=== PATIENT | male | born 1965 | race Caucasian/White ===

== ENCOUNTER 2023-01-17 08:57 | Observation (INO) | payer OTHER, SELFPAY ==
[2023-01-17 09:33] LABS: #Basophils 0.1 thou/uL (0.0-0.2); #Eosinphils 0.3 thou/uL (0.0-0.7); #Monocytes 1.1 thou/uL (0.11-0.59); #Neutrophils 6.2 thou/uL (1.40-6.50); %Basophils 0.7 % (0.0-1.0); %Eosinophils 2.8 % (0.0-10.0); %Lymphocytes 31.3 % (21.0-51.0); %Neutrophils 54.5 % (42.0-75.0); Hematocrit 41.1 % (42.0-52.0); Hemoglobin 13.5 g/dL (14.0-18.0); Mean Corpuscular HGB CONC 32.8 g/dL (32.0-36.0); Mean Corpuscular Hemoglobin 31.8 pg (27.0-31.0); Mean Corpuscular Volume 96.9 fl (78.0-98.0); Mean Platelet Volume 9.4 fL (7.4-10.4); Platelet Count 343 10x3/uL (130-400); RBC Distribution Width 13.2 % (11.5-14.5); Red Blood Cell (RBC) Count 4.24 mill/uL (4.70-6.10); White Blood Cell (WBC) Count 11.3 10x3/uL (4.8-10.8)
[2023-01-17 09:59] LABS: Troponin I 0.025 ng/mL (< 0.028)
[2023-01-17 10:03] LABS: ALT (SGPT) 19 U/L (8-55); AST (SGOT) 16 U/L (5-34); Albumin 4.1 g/dL (3.5-5.0); Alkaline Phosphatase 73 U/L (40-110); Anion Gap 16 mmol/L (10-20); BUN (Urea Nitrogen) 13 mg/dL (8.4-25.7); Bilirubin, Total 0.2 mg/dL (0.2-1.2); Calc. Creatinine Clearance 0 mL/min (70-130); Calcium 9.8 mg/dL (7.8-10.44); Carbon Dioxide 23 mmol/L (22-29); Chloride 104 mmol/L (98-107); Estimated GFR 93; Globulin 3.8 g/dL (2.4-3.5); Glucose 125 mg/dL (70-105); Lipase 15 U/L (8-78); Potassium 4.6 mmol/L (3.5-5.1); Protein, Total 7.9 g/dL (6.0-8.3); Sodium 138 mmol/L (136-145)
[2023-01-17] MEDS ORDERED: Nitroglycerin 2% Ointment 1 INCH/1 GM Packet ONE (10:56)
[2023-01-17] MEDS ORDERED: Aspirin Chewable 81 MG TAB ONE (11:00)
[2023-01-17] MEDS ORDERED: Dextrose 50% Abboject 50 ML SYRINGE SLOW IVP PRN (12:17)
[2023-01-17] MEDS ORDERED: Senokot S 8.6-50 MG TAB PO PRN (12:17)
[2023-01-17] MEDS ORDERED: Bisacodyl 10 MG SUPP PR PRN (12:17)
[2023-01-17] MEDS ORDERED: Acetaminophen 325 MG TAB PO PRN (12:17)
[2023-01-17] MEDS ORDERED: Bisacodyl 5 MG TAB PO PRN (12:17)
[2023-01-17] MEDS ORDERED: Dextrose 5% in Water 1,000 ML IV PRN (12:17)
[2023-01-17] MEDS ORDERED: HumaLOG 300 UNITS/3 ML VIAL SC PRN ×2 (12:17)
[2023-01-17] MEDS ORDERED: Glucagon 1 MG/ML KIT IM PRN (12:17)
[2023-01-17] MEDS ORDERED: Sodium Chloride 0.9% 1,000 ML IV SCH (12:30)
[2023-01-17 14:04] LABS: Hemoglobin A1c 8.5 % (4.0-6.0)
[2023-01-17 14:09] LABS: Troponin I Less than 0.010 ng/mL (< 0.028)
[2023-01-17 15:32] VITALS: BMI 47.7
[2023-01-17 17:12] LABS: Troponin I 0.021 ng/mL (< 0.028)
[2023-01-17] MEDS: Nitroglycerin 2% Ointment 1 INCH/1 GM Packet TOP SCH (21:13)
[2023-01-17] MEDS: Enoxaparin 120 MG/0.8 ML SYRINGE SC SCH (21:14)
[2023-01-18] MEDS: Nitroglycerin 2% Ointment 1 INCH/1 GM Packet TOP SCH ×2 (03:11→14:15)
[2023-01-18 07:01] LABS: #Basophils 0.1 thou/uL (0.0-0.2); #Eosinphils 0.4 thou/uL (0.0-0.7); #Monocytes 1.2 thou/uL (0.11-0.59); #Neutrophils 6.4 thou/uL (1.40-6.50); %Basophils 0.7 % (0.0-1.0); %Eosinophils 3.4 % (0.0-10.0); %Lymphocytes 24.6 % (21.0-51.0); %Monocytes 11.2 % (0.0-10.0); %Neutrophils 59.1 % (42.0-75.0); Hematocrit 40.4 % (42.0-52.0); Hemoglobin 13.3 g/dL (14.0-18.0); Mean Corpuscular HGB CONC 32.9 g/dL (32.0-36.0); Mean Corpuscular Hemoglobin 31.9 pg (27.0-31.0); Mean Corpuscular Volume 96.9 fl (78.0-98.0); Mean Platelet Volume 9.2 fL (7.4-10.4); Platelet Count 311 10x3/uL (130-400); RBC Distribution Width 13.2 % (11.5-14.5); Red Blood Cell (RBC) Count 4.17 mill/uL (4.70-6.10); White Blood Cell (WBC) Count 10.8 10x3/uL (4.8-10.8)
[2023-01-18 07:32] LABS: Anion Gap 18 mmol/L (10-20); BUN (Urea Nitrogen) 13 mg/dL (8.4-25.7); Calc. Creatinine Clearance 182 mL/min (70-130); Calcium 9.5 mg/dL (7.8-10.44); Carbon Dioxide 22 mmol/L (22-29); Cardiac Risk 7.6 (Less than 4.5); Chloride 103 mmol/L (98-107); Cholesterol 244 mg/dl (< 200 Desired); Estimated GFR 91; Glucose 169 mg/dL (70-105); HDL Cholesterol 32 mg/dL (>60 Neg Risk); Potassium 4.6 mmol/L (3.5-5.1); Sodium 138 mmol/L (136-145); Triglycerides 676 mg/dL (Less than 150)
[2023-01-18 07:33] LABS: ALT (SGPT) 20 U/L (8-55); AST (SGOT) 15 U/L (5-34); Albumin 3.9 g/dL (3.5-5.0); Alkaline Phosphatase 66 U/L (40-110); Bilirubin, Direct 0.1 mg/dL (0.1-0.3); Bilirubin, Total 0.2 mg/dL (0.2-1.2); Protein, Total 7.3 g/dL (6.0-8.3)
[2023-01-18] MEDS: Enoxaparin 120 MG/0.8 ML SYRINGE SC SCH (08:04)
[2023-01-18] MEDS ORDERED: Losartan 25 MG TAB PO SCH (09:00)
[2023-01-18] MEDS ORDERED: Aspirin Chewable 81 MG TAB PO SCH (09:00)
[2023-01-18 11:51] VITALS: BP 159/71; TEMP 98.2
[2023-01-18] MEDS ORDERED: Regadenoson 0.4 MG/5 ML SYRINGE ONE (14:37)
[2023-01-18] MEDS ORDERED: metFORMIN 500 MG TAB PO SCH (17:00)
[2023-01-18] MEDS ORDERED: Fenofibrate Nanocrystallized 145 MG TAB PO SCH (21:00)
[2023-01-18] MEDS ORDERED: Metoprolol Tartrate 25 MG TAB PO SCH (21:00)
[2023-01-18] MEDS ORDERED: Atorvastatin Calcium 40 MG TAB PO SCH (21:00)
[2023-01-19] MEDS ORDERED: Clopidogrel Bisulfate 75 MG TAB PO SCH (09:00)
== END 2023-01-18 15:58 | disposition home or self-care (01) ==
LOC: ERS 08:57 → SUATTDRO 08:57 → 2SW 14:48
PROVIDERS: ADMIT Family Medicine; ATTEND Family Medicine
DX: R07.9 Chest pain, unspecified (principal); I10 Essential (primary) hypertension; I25.110 Atherosclerotic heart disease of native coronary artery with unstable angina pectoris; I73.9 Peripheral vascular disease, unspecified; E11.43 Type 2 diabetes mellitus with diabetic autonomic (poly)neuropathy; D72.829 Elevated white blood cell count, unspecified; E78.5 Hyperlipidemia, unspecified; Z87.891 Personal history of nicotine dependence; Z88.2 Allergy status to sulfonamides; Z79.84 Long term (current) use of oral hypoglycemic drugs; Z79.02 Long term (current) use of antithrombotics/antiplatelets; Z79.899 Other long term (current) drug therapy
CPT/HCPCS: 36415; 36416; 71045; 78452; 80048; 80053; 80061; 80076; 83036; 83690; 83735; 83880; 84443; 84484; 85025; 86850; 86900; 86901; 93005; 93017; 93306; 94760; 96372; A9502; G0378; J1650; J2785

== ENCOUNTER 2023-10-20 07:38 | Outpatient (CLI) | payer BC | END 2023-10-20 07:39 | disposition home or self-care (01) | LOC: BICCT 07:38 | PROVIDERS: ATTEND Internal Medicine Hematology & Oncology | DX: Z12.2 Encounter for screening for malignant neoplasm of respiratory organs (principal); F17.210 Nicotine dependence, cigarettes, uncomplicated; D35.01 Benign neoplasm of right adrenal gland; J98.4 Other disorders of lung | CPT/HCPCS: 71271 ==

== ENCOUNTER 2024-01-13 07:40 | Emergency (ER) | payer BC ==
[2024-01-13] MEDS ORDERED: Ketorolac Tromethamine 30 MG (1 mL) VIAL ONE (08:28)
[2024-01-13 10:19] LABS: Hematocrit 40.6 % (42.0-52.0); Hemoglobin 13.6 g/dL (14.0-18.0); Mean Corpuscular HGB CONC 33.5 g/dL (32.0-36.0); Mean Corpuscular Hemoglobin 30.9 pg (27.0-31.0); Mean Corpuscular Volume 92.3 fL (78.0-98.0); Mean Platelet Volume 9.1 fL (7.4-10.4); Platelet Count 279 10x3/uL (130-400)
[2024-01-13 10:23] LABS: Bacteria/HPF None Seen HPF (None Seen); Bilirubin Negative (Negative); Blood, Urine Negative (Negative); CAUTI Indications for Culture Dysuria,urgency,freq; Clarity Clear (Clear); Glucose, Urine (Dipstick) Normal (Negative); Ketone, Urine Negative (Negative); Leukocyte Negative Leu/uL (Negative); Nitrite Negative (Negative); Protein, Urine (Dipstick) 20 mg/dL (Neg-Trace); RBC/HPF 0-3 HPF (0-3); Specific Gravity, Urine 1.021 (1.002-1.036); Squamous Epithelial 0-3 HPF (0-3); Urobilinogen Normal mg/dL (Less than 2); WBC/HPF 0-3 HPF (0-3)
[2024-01-13 10:25] LABS: Urine Culture Reflex No No
[2024-01-13 10:39] LABS: ALT (SGPT) 21 U/L (8-55); AST (SGOT) 16 U/L (5-34); Albumin 3.5 g/dL (3.5-5.0); Alkaline Phosphatase 72 U/L (40-110); Anion Gap 13 mmol/L (10-20); BUN (Urea Nitrogen) 15 mg/dL (8.4-25.7); Bilirubin, Total 0.2 mg/dL (0.2-1.2); Calc. Creatinine Clearance 0 mL/min (70-130); Calcium 9.2 mg/dL (7.8-10.44); Carbon Dioxide 25 mmol/L (22-29); Chloride 106 mmol/L (98-107); Estimated GFR 101; Globulin 3.5 g/dL (2.4-3.5); Glucose 74 mg/dL (70-105); Potassium 4.4 mmol/L (3.5-5.1); Sodium 140 mmol/L (136-145)
[2024-01-13 10:44] LABS: Band 1 % (5-11); Eosinophils 1 % (0-10); Lymphocytes 17 % (21-51); Monocytes 8 % (0-10); Neutrophil 66 % (42-75); Platelet Adequacy Comment Platelets Normal; Polychromasia SLIGHT = 2-3 cells HPF (0-2); Reactive Lymphocytes 5 % (0-10)
== END 2024-01-13 12:49 | disposition home or self-care (01) ==
LOC: ERS 07:40
DX: D35.01 Benign neoplasm of right adrenal gland (principal); I25.10 Atherosclerotic heart disease of native coronary artery without angina pectoris; E11.9 Type 2 diabetes mellitus without complications; I10 Essential (primary) hypertension; Z87.891 Personal history of nicotine dependence
CPT/HCPCS: 74176; 80053; 81001; 85025; 96372; J1885

== ENCOUNTER 2024-10-25 16:07 | Emergency (ER) | payer BC | END 2024-10-25 17:17 | disposition left against medical advice (07) | LOC: ERS 16:07 | DX: Z53.21 Procedure and treatment not carried out due to patient leaving prior to being seen by health care provider (principal) ==

== ENCOUNTER 2024-10-27 14:00 | Outpatient (CLI) | payer BC | END 2024-10-27 14:01 | disposition home or self-care (01) | LOC: SCSRAD 14:00 | PROVIDERS: ATTEND Family Medicine | DX: M25.552 Pain in left hip (principal) ==

== ENCOUNTER 2024-11-15 13:57 | Outpatient (CLI) | payer BC | END 2024-11-15 13:58 | disposition home or self-care (01) | LOC: CT 13:57 | PROVIDERS: ATTEND Family Medicine | DX: R10.9 Unspecified abdominal pain (principal); I71.40 Abdominal aortic aneurysm, without rupture, unspecified | CPT/HCPCS: 74150 ==